=== PATIENT | female | born 1955 | race Caucasian/White ===

== ENCOUNTER 2018-02-12 07:54 | Outpatient (CLI) | payer MEDICARE ==
--- NOTE | 2018-02-12 09:04 | ULT ---
ULTRASOUND ABDOMINAL AORTA; Date: 02/12/18 HISTORY: Screening for abdominal aortic aneurysm. FINDINGS: The abdominal aorta and common iliac arteries demonstrate normal caliber without evidence of aneurysm al dilatation. The maximum aortic dimension is 2.0 cm in the proximal abdominal aorta. IMPRESSION: No evidence of abdominal aortic aneurysm. POS: C
== END 2018-02-12 07:55 | disposition home or self-care (01) ==
LOC: NAV ULT 07:54
PROVIDERS: ATTEND Family Medicine
DX: Z13.6 Encounter for screening for cardiovascular disorders (principal)
CPT/HCPCS: 76775